=== PATIENT | female | born 1975 | race Caucasian/White ===

== ENCOUNTER 2017-09-10 20:16 | Emergency (ER) | payer OTHER ==
[~2017-09-10] VITALS: Ht 167.6 cm; Wt 85.0 kg
[2017-09-10] MEDS ORDERED: COUM2.5T PO (20:27)
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
[2017-09-10 20:29] VITALS: BP 122/92; PULSE 93; RESP 18; TEMP 98.1; O2SAT 99
[2017-09-10] MEDS ORDERED: HALDOL PO (20:29)
[2017-09-10] MEDS ORDERED: LITH300C2 PO (20:29)
[2017-09-10] MEDS ORDERED: IBUPROFEN 800 MG TAB PO ONE (20:45)
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
[2017-09-10 22:13] VITALS: BP 117/78; PULSE 81; RESP 18; O2SAT 98
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
[2017-09-10] MEDS ORDERED: ROBA500T PO (22:22)
[2017-09-11] MEDS ORDERED: HALO10TA PO (10:21)
== END 2017-09-10 22:40 ==
LOC: NEPE 20:16
DX: S80.12XA Contusion of left lower leg, initial encounter (principal); S80.11XA Contusion of right lower leg, initial encounter; F20.9 Schizophrenia, unspecified; R07.9 Chest pain, unspecified; R10.2 Pelvic and perineal pain; V89.2XXA Person injured in unspecified motor-vehicle accident, traffic, initial encounter
CPT/HCPCS: 70450; 71045; 72125; 72170; 73130; 73590; 84703